=== PATIENT | female | born 1985 | race Caucasian/White ===

== ENCOUNTER 2017-06-09 05:35 | Day surgery (SDC) | payer OTHER ==
[2017-06-01 11:54] LABS: HEMATOCRIT 39.9 % (36.0-47.0); HEMOGLOBIN 13.8 g/dL (12.0-15.5); HGB HCT DIFFERENCE 1.5; MEAN CORPUSCULAR HEMOGLOBIN 30.9 pg (27.0-33.4); MEAN CORPUSCULAR HGB CONC 34.6 g/dL (32.0-36.0); MEAN CORPUSCULAR VOLUME 89 fl (80-97); RED BLOOD COUNT 4.47 10^6/uL (3.72-5.28); RED CELL DISTRIBUTION WIDTH 12.9 % (11.5-14.0)
[2017-06-01 12:00] LABS: APPEARANCE,URINE CLEAR; BILIRUBIN,URINE NEGATIVE (NEGATIVE); GLUCOSE, URINE NEGATIVE (NEGATIVE); KETONES,URINE NEGATIVE (NEGATIVE); LEUKOCYTE ESTERASE,URINE NEGATIVE (NEGATIVE); NITRITE,URINE NEGATIVE (NEGATIVE); PROTEIN,URINE NEGATIVE (NEGATIVE); URINE SPECIFIC GRAVITY 1.005; UROBILINOGEN,URINE NEGATIVE mg/dL (<2.0)
[2017-06-01 12:23] LABS: ALANINE AMINOTRANSFERASE 30 U/L (9-52); ALBUMIN 4.5 g/dL (3.5-5.0); ALKALINE PHOSPHATASE 123 U/L (38-126); ANION GAP 15 (5-19); ASPARTATE AMINO TRANSFERASE 20 U/L (14-36); BILIRUBIN,DIRECT 0.3 mg/dL (0.0-0.4); BILIRUBIN,TOTAL 0.5 mg/dL (0.2-1.3); BLOOD UREA NITROGEN 17 mg/dL (7-20); CALCIUM 9.8 mg/dL (8.4-10.2); CARBON DIOXIDE 23 mmol/L (22-30); CHLORIDE 104 mmol/L (98-107); GLUCOSE 82 mg/dL (75-110); POTASSIUM 4.6 mmol/L (3.6-5.0); SODIUM 141.7 mmol/L (137-145); TOTAL PROTEIN 7.6 g/dL (6.3-8.2)
[2017-06-09] MEDS ORDERED: CEFAZOLIN 1 GM/D5W RTU 1 GM/50 ML RTUPB IV ONE (05:54)
[2017-06-09] MEDS ORDERED: LIDOCAINE 2% INJ-PF (20 MG/ML) 10 ML AMPUL ONE (07:06)
[2017-06-09] MEDS ORDERED: ACETAMINOPHEN 100 ML IV ONE (07:07)
[2017-06-09] MEDS ORDERED: EPHEDRINE SULFATE INJ 50 MG/1 ML AMPULE ONE (07:07)
[2017-06-09] MEDS ORDERED: PROPOFOL INJ 200 MG/20 ML VIAL IV ONE (07:07)
[2017-06-09] MEDS ORDERED: FENTANYL CITRATE INJ/PF 100 MCG/2 ML AMPUL ONE ×2 (07:07→10:03)
[2017-06-09] MEDS ORDERED: MIDAZOLAM 2 MG/2 ML INJ ONE (07:07)
[2017-06-09] MEDS ORDERED: KETOROLAC TROMETHAMINE 60 MG/2 ML SDV ONE (07:08)
[2017-06-09] MEDS ORDERED: HYDROMORPHONE HCL INJ/PF 2 MG/ML AMPULE ONE (07:08)
[2017-06-09] MEDS ORDERED: ONDANSETRON HCL INJ/PF 4 MG/2 ML SDV ONE (07:08)
[2017-06-09] MEDS ORDERED: DEXAMETHASONE SOD PHOSPHATE INJ 4 MG/1 ML VIAL ONE (07:08)
[2017-06-09] MEDS ORDERED: PROMETHAZINE HCL INJ 25 MG/1 ML VIAL IV PRN ×2 (08:51)
[2017-06-09] MEDS ORDERED: OXYCODONE-ACETAMINOPHEN 5-325 MG TABLET PO PRN ×2 (08:51)
[2017-06-09] MEDS ORDERED: MEPERIDINE HCL/PF INJ 25 MG/1 ML DISP.SYRIN IV PRN (08:51)
[2017-06-09] MEDS ORDERED: ONDANSETRON HCL INJ/PF 4 MG/2 ML SDV IV PRN (08:51)
[2017-06-09] MEDS ORDERED: FENTANYL CITRATE INJ/PF 100 MCG/2 ML AMPUL IV PRN ×3 (08:51)
[2017-06-09] MEDS ORDERED: DIPHENHYDRAMINE HCL 50 MG/ML VIAL IV PRN (08:51)
[2017-06-09] MEDS ORDERED: MORPHINE SULFATE 10 MG/ML INJ IV PRN ×2 (08:51→10:26)
[2017-06-09] MEDS ORDERED: RINGERS SOLUTION,LACTATED 1,000 ML IV PRN (10:26)
--- NOTE | 2017-06-09 10:43 | OPERATIVE REPORT E ---
Operative Report NAME: GIDEON COOLEY : 1985 AGE: 32Y DATE OF SURGERY: 06/09/2017 ROOM: PREOPERATIVE DIAGNOSES: 1. Abnormal uterine bleeding. 2. Anemia. 3. Chronic pelvic pain. POSTOPERATIVE DIAGNOSES: 1. Abnormal uterine bleeding. 2. Anemia. 3. Chronic pelvic pain. SURGEON: GEORGE ROJAS M.D. ANESTHESIA: Dr. Rose with general. FINDINGS: An 8-10 week size uterus with a very stenotic cervix and a stenotic perineum. COMPLICATIONS: None. ESTIMATED BLOOD LOSS: 100 mL. SPECIMENS REMOVED: Uterus, cervix, and fallopian tubes bilaterally. PROCEDURE: Robotic-assisted total laparoscopic hysterectomy with bilateral salpingectomy. PROCEDURE IN DETAIL: Patient was taken to the operating room and prepared and draped in a normal sterile fashion in the dorsal lithotomy position. Under sterile conditions, the Saravia catheter was placed to gravity. Sterile speculum was then placed into the vagina and the cervix was prepped with Betadine and grasped on the anterior lip with a single-toothed tenaculum. The cervix was then sounded to approximately 8 cm and the cervix was then dilated to accommodate a medium Vcare, which was placed without difficulty, but with noticing of very tight pelvis and perineal muscles, and therefore, the vagina was inspected for any type of trauma due to the placement of the Vcare and was found to be atraumatic at that time. The gloves were changed and attention was turned to the upper portion of the case where an umbilical skin incision was made to accommodate the Gelpoint, which was placed without difficulty. Abdomen was inflated with approximately 2 L of CO2 gas. The camera was then introduced through the camera trocar, and under direct visualization, two 5 mm ports were placed approximately 10 cm on either side of the umbilicus. The robot was then docked and the instruments were placed. Then, descrubbed and sat at the console, where using monopolar scissors and the vessel sealer, I began with transection of the right fallopian tube using the monopolar scissors until it was completely freed and removed through the assistance port. The utero-ovarian ligament was then transected using the vessel sealer and the rest of the uterine artery was skeletonized and coagulated and transected using the vessel sealer until it reached the level of the external cervical os, which was noted due to distortion of the vaginal mucosa that would indicate the Vcare device. This procedure was repeated on the left without any difficulty. The colporrhaphy was then begun on the posterior aspect following the distortion of the vaginal mucosa where the Vcare cup was noticed. This was done with the monopolar scissors circumferentially until the specimen was completely freed. The specimen was then removed through the vagina using the Vcare. The instruments were replaced with a Zaheer Needle [employer] Developer and a Prograf. A V-Loc needle was placed through the assistance port and used to close the vaginal cuff incorporating the uterosacral ligament in 2 bites each bilaterally to ensure that vaginal prolapse was happily prevented. Once the cuff was closed, the ureters were inspected at the pelvic brim. The right ureter was easily noted through the retroperitoneal covering and it was peristalsing normally. The left ureter could not be adequately visualized due to adipose tissue; however, there was no evidence of hydroureter distorting the peritoneal wall and there was free flow of urine through the Saravia catheter with no blood noted. Therefore, suspicion for injury was minimal. All instruments were then removed under direct visualization and the robot was undocked. The fascia was closed with 0 Vicryl at the umbilical incision. The skin was closed with 4-0 Vicryl at all 3 sites. Patient tolerated procedure well. Sponge, lap, and needle counts were correct x2. I did scrub once more and inspected the vagina to ensure that there was no trauma from the Vcare at the end of the case and there was none noted with careful inspection using a sponge stick for retraction. Once skin incisions were completed, patient was taken to recovery in stable condition. DICTATING PHYSICIAN: GEORGE ROJAS M.D. [id number] Y#: [id number] ID: [id number] JOB#: [id number] ACCT: [id number] cc:GEORGE ROJAS M.D. >
[2017-06-09] MEDS: OXYCODONE-ACETAMINOPHEN 5-325 MG TABLET PO PRN ×3 (11:09→21:19)
[2017-06-09] MEDS ORDERED: DIPHENHYDRAMINE HCL 25 MG CAPSULE ONE (13:13)
[2017-06-09] MEDS ORDERED: DIPHENHYDRAMINE HCL 25 MG CAPSULE PO PRN (13:14)
[2017-06-09] MEDS ORDERED: ACETAMINOPHEN 100 ML IV SCH ×2 (14:00→16:00)
[2017-06-09] MEDS ORDERED: SUCCINYLCHOLINE CHLORIDE INJ 200 MG/10 ML VIAL ONE (14:46)
[2017-06-09] MEDS ORDERED: VECURONIUM BROMIDE INJ 10 MG VIAL IV ONE (14:46)
[2017-06-09] MEDS ORDERED: NEOSTIGMINE METHYLSULFATE 10 MG/10 ML VIAL ONE (14:46)
[2017-06-09] MEDS ORDERED: METOCLOPRAMIDE HCL INJ/PF 10 MG/2 ML SDV ONE (14:46)
[2017-06-09] MEDS ORDERED: GLYCOPYRROLATE INJ 0.4 MG/2 ML VIAL ONE (14:46)
[2017-06-09] MEDS: KETOROLAC TROMETHAMINE INJ/PF 30 MG/1 ML SDV IV SCH (17:44)
[2017-06-10] MEDS: KETOROLAC TROMETHAMINE INJ/PF 30 MG/1 ML SDV IV SCH (01:31)
[2017-06-10] MEDS: OXYCODONE-ACETAMINOPHEN 5-325 MG TABLET PO PRN ×2 (03:40→08:29)
[2017-06-10 05:10] LABS: HEMATOCRIT 34.7 % (36.0-47.0); HEMOGLOBIN 11.9 g/dL (12.0-15.5); MEAN CORPUSCULAR HEMOGLOBIN 30.5 pg (27.0-33.4); MEAN CORPUSCULAR HGB CONC 34.3 g/dL (32.0-36.0); MEAN CORPUSCULAR VOLUME 89 fl (80-97); RED BLOOD COUNT 3.91 10^6/uL (3.72-5.28); RED CELL DISTRIBUTION WIDTH 12.7 % (11.5-14.0); WHITE BLOOD COUNT 12.9 10^3/uL (4.0-10.5)
--- NOTE | 2017-06-10 07:45 | PDOC DISCHARGE SUMMARY ---
General - Admit/Disc Date/PCP Admission Date/Primary Care Provider: GEORGE ROAJS MD Discharge Date: 06/10/17 - Discharge Diagnosis (1) Abnormal uterine bleeding (AUB) Is this a current diagnosis for this admission?: Yes (2) Anemia Is this a current diagnosis for this admission?: Yes (3) Chronic female pelvic pain Is this a current diagnosis for this admission?: Yes - Additional Information Home Medications: Bupropion HCl [Wellbutrin 75 Mg Tablet] 75 mg PO DAILY 06/01/17 History of Present Illness History of Present Illness: GIDEON COOLEY is a 32 year old female who underwent RATLH w/ b/l salpingectomy without difficulty. unremarkable post op course. Physical Exam - Physical Exam Vital Signs: Temp Pulse Resp BP Pulse Ox 98.1 F 64 20 115/64 98 06/10/17 03:40 06/10/17 03:40 06/10/17 03:40 06/10/17 03:40 06/10/17 03:40 Intake & Output 06/09/17 06/10/17 06/11/17 06:59 06:59 06:59 Intake Total 0 3600 Output Total 1160 Balance 0 2440 Weight 92.08 kg General appearance: PRESENT: no acute distress Head exam: PRESENT: atraumatic GI/Abdominal exam: PRESENT: soft - incisions c/d/intact. pain appropriate for post op period Result Laboratory Results: 06/10/17 05:00 06/01/17 11:00 06/10/17 05:00 WBC 12.9 H RBC 3.91 Hgb 11.9 L Hct 34.7 L MCV 89 MCH 30.5 MCHC 34.3 RDW 12.7 Plt Count 214 Plan Discharge Plan: discharge home with follow up at scheduled appt. Time Spent: Less than 30 Minutes
[2017-06-10 09:24] VITALS: BP 113/80
[2017-06-10] MEDS ORDERED: IBUPROFEN 800 MG TABLET PO SCH (14:00)
== END 2017-06-10 09:50 | disposition home or self-care (01) ==
LOC: OROUT 05:35 → 2N 10:51 → OROUT 06-10 09:50
PROVIDERS: ATTEND Obstetrics & Gynecology
PROC: 0UT74ZZ Resection of Bilateral Fallopian Tubes, Percutaneous Endoscopic Approach (ICD-10-PCS; 2017-06-09)
PROC: 8E0W4CZ Robotic Assisted Procedure of Trunk Region, Percutaneous Endoscopic Approach (ICD-10-PCS; 2017-06-09)
PROC: 0UT94ZZ Resection of Uterus, Percutaneous Endoscopic Approach (ICD-10-PCS; principal; 2017-06-09 07:30)
DX: N80.9 Endometriosis, unspecified (principal); N93.9 Abnormal uterine and vaginal bleeding, unspecified; D64.9 Anemia, unspecified; G89.29 Other chronic pain; R10.2 Pelvic and perineal pain; M06.9 Rheumatoid arthritis, unspecified; E66.9 Obesity, unspecified; Z68.34 Body mass index [BMI] 34.0-34.9, adult; Z79.899 Other long term (current) drug therapy; F17.210 Nicotine dependence, cigarettes, uncomplicated; N88.2 Stricture and stenosis of cervix uteri
CPT/HCPCS: 58571; S2900; 36415; 80053; 81001; 81025; 840; 85027; 86850; 86900; 86901; 88307; J0131; J0330; J0690; J1100; J1170; J1885; J2250; J2405; J2704; J2765; J3010; J3490